=== PATIENT | female | born 1965 | race Caucasian/White ===

== ENCOUNTER 2017-07-24 18:32 | Emergency (ER) | payer BC ==
[2017-07-24 18:35] VITALS: BP 132/82; PULSE 103; TEMP 98; BMI 41.0
--- NOTE | 2017-07-24 19:13 | PDOC ---
History of Present Illness - General History Source: Patient Exam Limitations: No Limitations - History of Present Illness Initial Comments: 07/24/17 19:41 Patient is a 52 year old female with a significant past medical history of Hypothyroidism who presents to the ED with complaints of right lower quadrant tenderness that began yesterday morning. Patient reports right lower quadrant pain to be an intermittent sharp pain that she states does not radiate. She reports experiencing this pain once last month, that prompted her to see her PCP but states it subsided until yesterday morning. Patient reports experiencing urinary urgency and slight diarrhea this morning. Denies chest pain, SOB. Denies nausea, vomiting. Denies fever, chills. Denies constipation, dysuria. Denies contact with sick individual, out of state travel. Denies any other symptoms. Allergies: None Social history: No smoking. No alcohol. No illicit drugs. Surgical history: x1. PMD: Dr. Brady <Elder Palomo - Last Filed: 07/24/17 19:40> <Lory Almodovar - Last Filed: 07/25/17 06:16> - General Chief Complaint: Pain Stated Complaint: ABD PAIN Time Seen by Provider: 07/24/17 19:13 Past History <Elder Palomo - Last Filed: 07/24/17 19:40> - Past Medical History COPD: No Thyroid Disease: Yes - Suicide/Smoking/Psychosocial Hx Smoking Status: No Smoking History: Never smoked Number of Cigarettes Smoked Daily: 0 Hx Alcohol Use: No Drug/Substance Use Hx: No <Lory Almodovar - Last Filed: 07/25/17 06:16> - Past Medical History Allergies/Adverse Reactions: Allergies Allergy/AdvReac Type Severity Reaction Status Date / Time No Known Allergies Allergy Verified 07/24/17 18:35 Home Medications: Ambulatory Orders Levothyroxine [Synthroid -] 125 mcg PO DAILY 07/24/17 Losartan/Hydrochlorothiazide [Losartan-Hctz 50-12.5 mg Tab] 1 each PO DAILY Nitrofurantoin Monohyd/M-Cryst [Macrobid -] 100 mg PO BID #9 capsule 07/24/17 Review of Systems - Review of Systems Able to Perform ROS?: Yes Comments:: 07/24/17 19:41 GENERAL/CONSTITUTIONAL: No fever or chills. No weakness. HEAD, EYES, EARS, NOSE AND THROAT: No change in vision. No ear pain or discharge. No sore throat. CARDIOVASCULAR: No chest pain or shortness of breath. RESPIRATORY: No cough, wheezing, or hemoptysis. GASTROINTESTINAL: No nausea, vomiting, diarrhea or constipation. GENITOURINARY: No dysuria, frequency, or change in urination. MUSCULOSKELETAL: +Right lower quadrant pain. No joint or muscle swelling. No neck or back pain. SKIN: No rash NEUROLOGIC: No headache, vertigo, loss of consciousness, or change in strength/ sensation. ENDOCRINE: No increased thirst. No abnormal weight change. HEMATOLOGIC/LYMPHATIC: No anemia, easy bleeding, or history of blood clots. ALLERGIC/IMMUNOLOGIC: No hives or skin allergy. All Other Systems: Reviewed and Negative <Elder Palomo - Last Filed: 07/24/17 19:40> *Physical Exam - Vital Signs Last Vital Signs Temp Pulse Resp BP Pulse Ox 98.0 F 103 H 20 132/82 97 07/24/17 18:32 07/24/17 18:32 07/24/17 18:32 07/24/17 18:32 07/24/17 18:32 - Physical Exam Comments: 07/24/17 19:41 GENERAL: Awake, alert, and fully oriented, in no acute distress HEAD: No signs of trauma EYES: PERRLA, EOMI, sclera anicteric, conjunctiva clear ENT: Auricles normal inspection, hearing grossly normal, nares patent, oropharynx clear without exudates. Moist mucosa NECK: Normal ROM, supple, no lymphadenopathy, JVD, or masses LUNGS: Breath sounds equal, clear to auscultation bilaterally. No wheezes, and no crackles HEART: Regular rate and rhythm, normal S1 and S2, no murmurs, rubs or gallops ABDOMEN: +Minimal RLQ tenderness. No flank pain. Soft, nontender, normoactive bowel sounds. No guarding, no rebound. No masses EXTREMITIES: Normal range of motion, no edema. No clubbing or cyanosis. No cords, erythema, or tenderness NEUROLOGICAL: Cranial nerves II through XII grossly intact. Normal speech, normal gait SKIN: Warm, Dry, normal turgor, no rashes or lesions noted. <Elder Palomo - Last Filed: 07/24/17 19:40> - Vital Signs Last Vital Signs Temp Pulse Resp BP Pulse Ox 98.0 F 103 H 20 132/82 97 07/24/17 18:32 07/24/17 18:32 07/24/17 18:32 07/24/17 18:32 07/24/17 18:32 <Lory Almodovar - Last Filed: 07/25/17 06:16> ED Treatment Course - LABORATORY CBC & Chemistry Diagram: 07/24/17 19:50 07/24/17 19:50 <Lory Almodovar - Last Filed: 07/25/17 06:16> Medical Decision Making - Medical Decision Making 07/24/17 20:25 Pt comes with RLQ pain that has been on and off since yesterday. She has no fever and no chills and she is able to eat though she has decreased appetite. She has no hx of abd surgeries -just . She had 1 episode of diarrhea today, but no vomiting. She has no dysuria, but she has frequency of urination. She has minimal flank pain on exam. She has mild RLQ pain, but no guarding and no rebound. 07/25/17 06:15 Pt vastly improved after hydration. <Lory Almodovar - Last Filed: 07/25/17 06:16> *DC/Admit/Observation/Transfer - Attestations Scribe Attestion: 07/24/17 19:41 Documentation prepared by Elder Palomo, acting as medical coding manager for Lory Almodovar MD/DO. <Elder Palomo - Last Filed: 07/24/17 19:40> <Lory Almodovar - Last Filed: 07/25/17 06:16> Diagnosis at time of Disposition: UTI (urinary tract infection) - Discharge Dispostion Disposition: HOME Condition at time of disposition: Improved - Prescriptions Prescriptions: Nitrofurantoin Monohyd/M-Cryst [Macrobid -] 100 mg PO BID #9 capsule - Referrals Referrals: Jonatan Brady MD [Primary Care Provider] - - Patient Instructions Printed Discharge Instructions: DI for Urinary Tract Infection (UTI) - Post Discharge Activity
[2017-07-24] MEDS ORDERED: SODIUM CHLORIDE 0.9% 500 ML INFUS.BAG IV ONE (19:28)
[2017-07-24] MEDS ORDERED: KETOROLAC TROMETHAMINE 30 MG/1 ML VIAL IVPUSH ONE (19:28)
[2017-07-24] MEDS ORDERED: KETOROLAC TROMETHAMINE 30 MG/1 ML VIAL ONE (19:50)
[2017-07-24 19:55] LABS: BASOPHIL 0.5 % (0-2.0); EOSINOPHIL 0.7 % (0-4.5); MCH 28.7 pg (25.7-33.7); MCHC 33.4 g/dl (32.0-36.0); MEAN CELL VOLUME 85.8 fl (80-96); MEAN PLT VOLUME 8.4 fl (7.5-11.1); NEUTROPHILS 69.1 % (42.8-82.8); PLATELET COUNT 405 K/MM3 (134-434); RDW 13.2 % (11.6-15.6); WHITE BLOOD COUNT 7.8 K/mm3 (4.0-10.0)
[2017-07-24 20:18] LABS: INR 1.01 (0.82-1.09); PROTHROMBIN TIME (PATIENT) 11.4 SEC (9.98-11.88)
[2017-07-24 20:21] LABS: ALBUMIN 3.6 g/dl (3.4-5.0); ANION GAP 7 (8-16); CALCIUM 8.6 mg/dL (8.5-10.1); CO2 27 mmol/L (21-32); CREATININE 0.4 mg/dL (0.55-1.02); GLUCOSE,RANDOM 103 mg/dL (74-106); SGOT/AST 12 U/L (15-37); SGPT/ALT 31 U/L (12-78)
[2017-07-24 20:22] LABS: URINE APPEARANCE CLEAR; URINE BILIRUBIN NEGATIVE (NEGATIVE); URINE BLOOD 2+ (NEGATIVE); URINE COLOR STRAW; URINE GLUCOSE (UA) NEGATIVE (NEGATIVE); URINE KETONE NEGATIVE (NEGATIVE); URINE LEUK ESTERASE NEGATIVE (NEGATIVE); URINE NITRITE NEGATIVE (NEGATIVE); URINE PROTEIN NEGATIVE (NEGATIVE); URINE UROBILINOGEN NEGATIVE mg/dL (0.2-1.0)
[2017-07-24 20:23] LABS: ALK PHOS 93 U/L (45-117); BILIRUBIN,TOTAL 0.5 mg/dL (0.2-1.0); TOT PROT 7.3 g/dl (6.4-8.2)
[2017-07-24 20:57] LABS: URINE RBC 3 /hpf (0-3); URINE WBC 2 /hpf (3-5)
[2017-07-24] MEDS ORDERED: NITROFURANTOIN MACROCRYSTAL 50 MG CAPSULE (FP) PO SCH (21:30)
[2017-07-24] MEDS ORDERED: NITROFURANTOIN MACROCRYSTAL 50 MG CAPSULE (FP) ONE (21:31)
[2017-07-24 23:46] LABS: URINE LEUK ESTERASE Negative (NEGATIVE)
== END 2017-07-24 21:47 | disposition home or self-care (01) ==
LOC: JER 18:32
PROC: 3E0333Z Introduction of Anti-inflammatory into Peripheral Vein, Percutaneous Approach (ICD-10-PCS; principal; 2017-07-24)
DX: N39.0 Urinary tract infection, site not specified (principal); E03.9 Hypothyroidism, unspecified
CPT/HCPCS: 36415; 80053; 81003; 81015; 85025; 85610; 99283-25